=== PATIENT | female | born 1980 | race Caucasian/White ===

== ENCOUNTER 2017-09-28 13:07 | Emergency (ER) | payer BC ==
[~2017-09-28] VITALS: Ht 175.3 cm; Wt 113.4 kg
[2017-09-28 13:11] VITALS: BP 132/75
[2017-09-28 14:15] LABS: BILIRUBIN,URINE Negative (NEGATIVE); BLOOD, URINE Negative Ery/uL (NEGATIVE); KETONES,URINE Negative (NEGATIVE); LEUKOCYTE ESTERASE ,URINE Negative (NEGATIVE); NITRITE, URINE Negative (NEGATIVE); PROTEIN,URINE Negative (NEGATIVE); UGLUCOSE Negative (NEGATIVE); UROBILINOGEN,URINE 0.2 EU/dL (0.2)
[2017-09-28 14:17] LABS: APPEARANCE,URINE CLEAR (CLEAR); COLOR,URINE DARK YELLOW (YELLOW)
[2017-09-28] MEDS ORDERED: PSEUDOEPHEDRINE HCL 30 MG TABLET ONE ×2 (14:57→14:59)
[2017-09-28] MEDS ORDERED: PSEUDOEPHEDRINE HCL 30 MG TABLET PO ONE (15:00)
== END 2017-09-28 15:41 | disposition home or self-care (01) ==
LOC: ER 13:08
DX: M54.5 Low back pain (principal); J06.9 Acute upper respiratory infection, unspecified; R21 Rash and other nonspecific skin eruption
CPT/HCPCS: 81000-TC; 84703-TC; 87210-TC; 87491; 87591; A4606; Z7610

== ENCOUNTER 2020-03-23 16:50 | Emergency (ER) | payer BC ==
[~2020-03-23] VITALS: Ht 177.8 cm; Wt 146.5 kg
[2020-03-23] MEDS ORDERED: KETOROLAC TROMETHAMINE INJ 30 MG/ML VIAL IV ONE (17:30)
[2020-03-23] MEDS ORDERED: IV NS 0.9% 1,000 ML BAG IV ONE (17:30)
[2020-03-23] MEDS ORDERED: KETOROLAC TROMETHAMINE INJ 30 MG/ML VIAL ONE (18:05)
[2020-03-23 18:24] LABS: APPEARANCE,URINE SL CLOUDY (CLEAR); BILIRUBIN,URINE NEGATIVE (NEGATIVE); BLOOD, URINE NEGATIVE Ery/uL (NEGATIVE); COLOR,URINE YELLOW (YELLOW); KETONES,URINE NEGATIVE (NEGATIVE); LEUKOCYTE ESTERASE ,URINE NEGATIVE (NEGATIVE); NITRITE, URINE NEGATIVE (NEGATIVE); PROTEIN,URINE NEGATIVE (NEGATIVE); UGLUCOSE NEGATIVE (NEGATIVE)
[2020-03-23 18:30] LABS: BACTERIA,URINE 3+ /HPF (None Seen); RBC,URINE 0-2 /HPF (0-2); WBC,URINE 0-2 /HPF (0-3)
[2020-03-23 18:31] LABS: SQUAMOUS EPITHELIAL CELL,UR Few /HPF (None Seen)
[2020-03-23 18:54] LABS: CALCIUM, SERUM 8.8 mg/dL (8.5-10.1); CREATININE 0.7 mg/dL (0.6-1.3); POTASSIUM 3.9 mmol/L (3.5-5.1)
[2020-03-23 19:00] LABS: BILIRUBIN,DIRECT 0.1 mg/dL (0.0-0.2); BILIRUBIN,TOTAL 0.5 mg/dL (0.2-1.0); TOTAL PROTEIN, SERUM 8.5 g/dL (6.4-8.2)
--- NOTE | 2020-03-23 19:24 | NUR ---
TOOK OVER PT CARE. PER TRIAGE AND PER PT C/O VAGINAL DISCHARGE & HEADACHE. PT WAS PLACED IN BED 16 ON MONITOR AND PULSE OX. VSS. NO ACUTE DISTRESS NOTED. RAC 20G WAS PLACED ON PT.
[2020-03-23] MEDS ORDERED: TRAMADOL HCL 50 MG TABLET PO ONE (20:00)
[2020-03-23] MEDS ORDERED: TRAMADOL HCL 50 MG TABLET ONE (20:04)
[2020-03-23 20:29] LABS: BASOPHILS % (AUTO) 0.5 % (0.0-2.0); EOSINOPHILS % (AUTO) 2.7 % (0.0-6.0); HEMATOCRIT 25 % (33-45); HEMOGLOBIN 7.1 g/dL (11.5-14.8); LYMPHOCYTES # (AUTO) 2.7 /CMM (0.8-4.8); LYMPHOCYTES % (AUTO) 32.6 % (20.0-44.0); MEAN CORPUSCULAR HGB CONC 29 g/dl (31.0-36.0); MEAN CORPUSCULAR VOLUME 61 fL (82-100); MONOCYTES # (AUTO) 0.5 /CMM (0.1-1.30); MONOCYTES % (AUTO) 6.6 % (2.0-12.0); NEUTROPHILS # (AUTO) 4.7 /CMM (1.8-8.9); NEUTROPHILS % (AUTO) 57.6 % (43.0-81.0); PLATELET COUNT (AUTO) 361 /CMM (150-450); WHITE BLOOD COUNT (AUTO) 8.1 K/uL (4.3-11.0)
[2020-03-23] MEDS ORDERED: DEXAMETHASONE SOD PHOSPHATE 10 MG/ML VIAL ONE (20:44)
[2020-03-23] MEDS ORDERED: diphenhydrAMINE HCL 50 MG/ML VIAL ONE (20:44)
[2020-03-23] MEDS ORDERED: PROCHLORPERAZINE EDISYLATE 10 MG/2 ML VIAL ONE (20:44)
[2020-03-23] MEDS ORDERED: IV NS 0.9% 500 ML BAG IV ONE (21:00)
[2020-03-23] MEDS ORDERED: DEXAMETHASONE SOD PHOSPHATE 10 MG/ML VIAL IV ONE (21:00)
[2020-03-23] MEDS ORDERED: PROCHLORPERAZINE EDISYLATE 10 MG/2 ML VIAL IVP ONE (21:00)
[2020-03-23] MEDS ORDERED: diphenhydrAMINE HCL 50 MG/ML VIAL IV ONE (21:00)
--- NOTE | 2020-03-23 22:01 | NUR ---
IV removed. Catheter intact and site benign. Pressure and 4x4 applied to site. No bleeding noted.Patient discharged to home in stable condition. Written and verbal after care instructions given. Patient verbalizes understanding of instruction. Pt ambualted with steady gait,. vss. Denies pain.
[2020-03-23 23:05] VITALS: BP 128/72
[2020-03-23 23:16] LABS: EOSINOPHILS % (MANUAL) 1 % (0-4); LYMPHOCYTES % (MANUAL) 33 % (16-48); MONOCYTES % (MANUAL) 6 % (0-11.0); NEUTROPHILS % (MANUAL) 60 (42-76)
== END 2020-03-23 23:06 | disposition home or self-care (01) ==
LOC: ER 16:55
DX: N89.8 Other specified noninflammatory disorders of vagina (principal); R51.9 Headache, unspecified; D64.9 Anemia, unspecified; Z98.890 Other specified postprocedural states
CPT/HCPCS: 36415; 80048; 80076; 81001; 83690; 84703; 85007; 85025; 87077; 87086; 87186; 87210; 87491; 87591; 96361; 96374; 96375; 99284; J0780; J1100; J1200; J1885; J7030; J7040; 81000-TC

== ENCOUNTER 2020-11-21 05:06 | Emergency (ER) | payer BC ==
[~2020-11-21] VITALS: Ht 175.3 cm; Wt 145.1 kg
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
--- NOTE | 2020-11-21 06:22 | NUR ---
X RAY AT BEDSIDE
[2020-11-21 07:12] LABS: BASOPHILS % (AUTO) 0.2 % (0.0-2.0); EOSINOPHILS % (AUTO) 2.7 % (0.0-6.0); HEMATOCRIT 25 % (33-45); HEMOGLOBIN 7.3 g/dL (11.5-14.8); LYMPHOCYTES # (AUTO) 2.3 /CMM (0.8-4.8); LYMPHOCYTES % (AUTO) 22.1 % (20.0-44.0); MEAN CORPUSCULAR HGB CONC 30 g/dl (31.0-36.0); MEAN CORPUSCULAR VOLUME 64 fL (82-100); MONOCYTES # (AUTO) 0.6 /CMM (0.1-1.30); MONOCYTES % (AUTO) 5.7 % (2.0-12.0); NEUTROPHILS % (AUTO) 69.3 % (43.0-81.0); PLATELET COUNT (AUTO) 298 /CMM (150-450); RED BLOOD CELL COUNT(AUTO) 3.89 MIL/uL (4.0-5.2); WHITE BLOOD COUNT (AUTO) 10.2 K/uL (4.3-11.0)
[2020-11-21 07:19] LABS: CALCIUM, SERUM 8.4 mg/dL (8.5-10.1); CARBON DIOXIDE 24 mmol/L (21-32); CHLORIDE 107 mmol/L (98-107); CREATININE 0.8 mg/dL (0.6-1.3); GLUCOSE 97 mg/dL (74-106); POTASSIUM 3.8 mmol/L (3.5-5.1); SODIUM SERUM 140 mmol/L (136-145); UREA NITROGEN, BLOOD 12 mg/dL (7-18)
[2020-11-21] MEDS ORDERED: LORAZEPAM INJ 2 MG/ML VIAL IV ONE (08:30)
[2020-11-21] MEDS ORDERED: LORAZEPAM INJ 2 MG/ML VIAL ONE (08:39)
--- NOTE | 2020-11-21 08:51 | NUR ---
PATIENT A/OX4, BREATHING EVEN AND UNLABORED, NO SOB NOTED. NEEDS ATTENDED. IV removed. Catheter intact and site benign. Pressure and 4x4 applied to site. No bleeding noted.Patient discharged to home in stable condition. Written and verbal after care instructions given. Patient verbalizes understanding of instruction. FAMILY AT BEDSIDE FOR TRANSPORTATION.
[2020-11-21 08:52] VITALS: BP 115/60
== END 2020-11-21 08:52 | disposition home or self-care (01) ==
LOC: ER 05:11
DX: R07.89 Other chest pain (principal)
CPT/HCPCS: 36415; 71045; 71275; 80048; 84484; 85025; 85378; 93005 ×3; 96374; 99285; J2060

== ENCOUNTER 2021-01-03 20:46 | Emergency (ER) | payer BC ==
[~2021-01-03] VITALS: Ht 175.3 cm; Wt 153.3 kg
--- NOTE | 2021-01-03 20:49 | NUR ---
PT AAOX4. BIBSELF C/O WORSENIG L SHOULDER PAIN RADIATING TO HAND X1 MONTH. DENIES TRAUMA. PLACED IN BED 17 ON MONITOR AND PULSE OX.
[2021-01-03] MEDS ORDERED: DEXAMETHASONE SOD PHOSPHATE 10 MG/ML VIAL ONE (21:05)
[2021-01-03] MEDS ORDERED: HYDROCODONE/APAP 5/325MG TABLET ONE ×2 (21:05→22:41)
[2021-01-03] MEDS ORDERED: KETOROLAC TROMETHAMINE INJ 60 MG/2 ML VIAL IM ONE (21:05)
[2021-01-03] MEDS: KETOROLAC TROMETHAMINE INJ 60 MG/2 ML VIAL IM ONE (21:34)
[2021-01-03] MEDS: DEXAMETHASONE SOD PHOSPHATE 4 MG/ML VIAL IM ONE (21:34)
[2021-01-03] MEDS: HYDROCODONE/APAP 5/325MG TABLET PO ONE ×2 (21:34→22:45)
[2021-01-03] MEDS ORDERED: HYDR-3980 PO (22:23)
[2021-01-03] MEDS ORDERED: IBUP-1957 PO (22:23)
--- NOTE | 2021-01-03 23:00 | NUR ---
Patient discharged to home in stable condition. Written and verbal after care instructions given. Patient verbalizes understanding of instruction. Pt ambulated out of ED.
[2021-01-03 23:01] VITALS: BP 120/76
== END 2021-01-03 23:01 | disposition home or self-care (01) ==
LOC: ER 20:54
DX: M54.12 Radiculopathy, cervical region (principal); M25.512 Pain in left shoulder; Z98.890 Other specified postprocedural states; Z79.899 Other long term (current) drug therapy
CPT/HCPCS: 72040; 73030; 96372 ×2; 99284; J1100; J1885

== ENCOUNTER 2021-07-24 12:03 | Emergency (ER) | payer BC ==
[~2021-07-24] VITALS: Ht 175.3 cm; Wt 149.5 kg
[~2021-07-24 12:03] MED LIST: HYDR-3980 PO; IBUP-1957 PO
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
--- NOTE | 2021-07-24 12:30 | NUR ---
AT BEDSIDE FOR EVAL.
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
--- NOTE | 2021-07-24 12:48 | NUR ---
PT IS WHEELED TO CT SCAN VIA [facility].
[2021-07-24] MEDS ORDERED: TDAP [DIPH/PERTUSSIS/TET] 0.5 ML VIAL IM ONE ×2 (12:50→13:00)
[2021-07-24] MEDS ORDERED: HYDROCODONE/APAP 5/325MG TABLET ONE (12:50)
[2021-07-24] MEDS ORDERED: IBUPROFEN 600 MG TABLET ONE (12:50)
--- NOTE | 2021-07-24 12:50 | NUR ---
CALLED [employer] #[phone] UNIT WILL BE DISPATCHED.
--- NOTE | 2021-07-24 12:53 | NUR ---
[employer] NUMBER [phone]
[2021-07-24] MEDS ORDERED: HYDROCODONE/APAP 5/325MG TABLET PO ONE (13:00)
[2021-07-24] MEDS ORDERED: IBUPROFEN 600 MG TABLET PO ONE (13:00)
--- NOTE | 2021-07-24 13:18 | NUR ---
PT SIGNED THE WAIVER.
[2021-07-24] MEDS ORDERED: AMOX/CLAVULANATE 875 MG TABLET PO ONE (13:30)
[2021-07-24] MEDS ORDERED: HYDR-3980 PO (13:33)
[2021-07-24] MEDS ORDERED: AMOX-430 PO (13:33)
[2021-07-24] MEDS ORDERED: AMOX/CLAVULANATE 875 MG TABLET ONE (13:36)
--- NOTE | 2021-07-24 13:56 | NUR ---
Patient discharged to home in stable condition. Written and verbal after care instructions given. Patient verbalizes understanding of instruction.
[2021-07-24 13:57] VITALS: BP 131/68
== END 2021-07-24 13:58 | disposition home or self-care (01) ==
LOC: ER 12:07
DX: S16.1XXA Strain of muscle, fascia and tendon at neck level, initial encounter (principal); S61.051A Open bite of right thumb without damage to nail, initial encounter; S61.451A Open bite of right hand, initial encounter; S09.90XA Unspecified injury of head, initial encounter; M79.645 Pain in left finger(s); Z98.890 Other specified postprocedural states; Z79.899 Other long term (current) drug therapy; Y04.1XXA Assault by human bite, initial encounter; Y93.89 Activity, other specified; Y92.89 Other specified places as the place of occurrence of the external cause; Y99.8 Other external cause status
CPT/HCPCS: 70450-TC; 70486-TC; 72125-TC; 73130-TC; 73140-TC; 90715

== ENCOUNTER 2023-12-08 08:48 | Inpatient (IN) | payer BC ==
[~2023-12-08] VITALS: Ht 175.3 cm; Wt 154.7 kg
[~2023-12-08 08:48] MED LIST changes: +AMOX-430 PO
[2023-12-08] MEDS: MORPHINE SULFATE INJ 2 MG/ML DISP.SYRIN IV ONE (09:30)
[2023-12-08] MEDS: IV NS 0.9% 500 ML BAG IV ONE (10:10)
[2023-12-08] MEDS: ONDANSETRON HCL/PF 4 MG/2 ML VIAL IVP ONE (10:10)
[2023-12-08] MEDS ORDERED: ONDANSETRON HCL/PF 4 MG/2 ML VIAL ONE (10:14)
[2023-12-08] MEDS ORDERED: MORPHINE SULFATE INJ 4 MG/ML DISP.SYRIN ONE (10:15)
[2023-12-08] MEDS: ACETAMINOPHEN ES 500 MG TABLET PO ONE (10:20)
[2023-12-08] MEDS ORDERED: ACETAMINOPHEN ES 500 MG TABLET ONE (10:21)
[2023-12-08 10:24] LABS: BASOPHILS % (AUTO) 0.5 % (0.0-2.0); EOSINOPHILS # (AUTO) 0.4 K/uL (0.0-0.7); EOSINOPHILS % (AUTO) 5.1 % (0.0-6.0); HEMATOCRIT 23 % (33-45); LYMPHOCYTES % (AUTO) 24.9 % (20.0-44.0); MEAN CORPUSCULAR HEMOGLOBIN 18 PG (26.0-33.0); MEAN CORPUSCULAR HGB CONC 30 g/dl (31.0-36.0); MEAN CORPUSCULAR VOLUME 60 fL (82-100); MONOCYTES # (AUTO) 0.4 K/uL (0.1-1.30); MONOCYTES % (AUTO) 4.7 % (2.0-12.0); NEUTROPHILS # (AUTO) 5.2 K/uL (1.8-8.9); NEUTROPHILS % (AUTO) 64.8 % (43.0-81.0); PLATELET COUNT (AUTO) 335 K/uL (150-450); RED BLOOD CELL COUNT(AUTO) 3.76 MIL/uL (4.0-5.2); RED CELL DISTRIBUTION WIDTH 22.9 % (11.5-15.0)
[2023-12-08 10:30] LABS: INR 1.01 (0.91-1.10); PARTIAL THROMBOPLASTIN TIME 23.6 SEC (24.3-34.3); PROTHROMBIN TIME 10.7 SECS (9.2-11.1)
[2023-12-08 10:34] LABS: HEMOGLOBIN 6.7 g/dL (11.5-14.8)
[2023-12-08 10:39] LABS: CREATININE 0.7 mg/dL (0.6-1.3); POTASSIUM 3.6 mmol/L (3.5-5.1)
[2023-12-08 12:26] LABS: ANISOCYTOSIS 1+; BASOPHILS % (MANUAL) 0 % (0.0-2.0); EOSINOPHILS % (MANUAL) 4 % (0-4); HYPOCHROMASIA 1+; LYMPHOCYTES % (MANUAL) 29 % (16-48); MONOCYTES % (MANUAL) 4 % (0-11.0); NEUTROPHILS % (MANUAL) 63 (42-76); PLATELET ESTIMATE ADEQUATE
[2023-12-08 12:27] LABS: OVALOCYTES 1+
[2023-12-08] MEDS: KETOROLAC TROMETHAMINE 15 MG/ML VIAL IM PRN (12:31)
[2023-12-08] MEDS ORDERED: NAPR220T66 PO (12:47)
[2023-12-08] MEDS ORDERED: IOHEXOL-300 100 ML VIAL IV ONE (12:53)
[2023-12-08] MEDS ORDERED: CT SWABBABLE VALVE TRANS SET 1 EA INFUS.SET MC ONE (12:53)
[2023-12-08] MEDS ORDERED: KETOROLAC TROMETHAMINE 15 MG/ML VIAL ONE (14:26)
[2023-12-08] MEDS: KETOROLAC TROMETHAMINE 15 MG/ML VIAL IV STA (14:34)
[2023-12-08] MEDS ORDERED: MAGNESIUM HYDROXIDE 30 ML UDC PO PRN (16:00)
[2023-12-08] MEDS ORDERED: ACETAMINOPHEN 325 MG TABLET PO PRN (16:00)
[2023-12-08] MEDS ORDERED: MAG HYDROX/AL HYDROX/SIMETH 30 ML UDC PO PRN (16:00)
[2023-12-08] MEDS ORDERED: Z GUARD REMEDY 4 OZ OINT TP PRN (16:00)
[2023-12-08 16:13] LABS: IRON, SERUM 15 ug/dl (50-175); TOTAL IRON BINDING CAPACITY 371 ug/dl (250-450)
[2023-12-08] MEDS: MORPHINE SULFATE INJ 2 MG/ML DISP.SYRIN IV PRN (16:38)
[2023-12-08 19:07] VITALS: BP 129/55; TEMP 98.4
[2023-12-08 19:22] VITALS: BP 129/55; TEMP 98.4
[2023-12-08 20:00] VITALS: BP 112/58; TEMP 97.7; O2SAT 100
[2023-12-08 20:22] VITALS: BP 108/55; TEMP 97.7
[2023-12-08] MEDS: HYDROCODONE/APAP 5/325MG TABLET PO PRN (21:49)
[2023-12-08] MEDS: ZOLPIDEM TARTRATE 5 MG TABLET PO PRN (22:04)
[2023-12-08 22:30] VITALS: BP 110/60; TEMP 97.8
[2023-12-09] VITALS (7 sets, daily range): BP systolic 91–124; BP diastolic 50–69; TEMP 97.8–98.7; O2SAT 98–99
[2023-12-09 07:21] LABS: BASOPHILS % (AUTO) 0.5 % (0.0-2.0); EOSINOPHILS # (AUTO) 0.4 K/uL (0.0-0.7); HEMATOCRIT 23 % (33-45); MONOCYTES # (AUTO) 0.5 K/uL (0.1-1.30); WHITE BLOOD COUNT (AUTO) 7.9 K/uL (4.3-11.0)
[2023-12-09 07:43] LABS: EOSINOPHILS % (AUTO) 4.6 % (0.0-6.0); LYMPHOCYTES % (AUTO) 25.5 % (20.0-44.0); MEAN CORPUSCULAR HEMOGLOBIN 19 PG (26.0-33.0); MEAN CORPUSCULAR HGB CONC 31 g/dl (31.0-36.0); MEAN CORPUSCULAR VOLUME 63 fL (82-100); MONOCYTES % (AUTO) 6.4 % (2.0-12.0); PLATELET COUNT (AUTO) 300 K/uL (150-450); RED BLOOD CELL COUNT(AUTO) 3.61 MIL/uL (4.0-5.2)
[2023-12-09 08:00] LABS: HEMOGLOBIN 6.9 g/dL (11.5-14.8)
[2023-12-09 10:21] LABS: CREATININE 0.7 mg/dL (0.6-1.3); MAGNESIUM 1.9 mg/dL (1.8-2.4); PHOSPHORUS 3.6 mg/dL (2.5-4.9); POTASSIUM 3.5 mmol/L (3.5-5.1)
[2023-12-09 15:13] LABS: ANISOCYTOSIS 2+; EOSINOPHILS % (MANUAL) 7 % (0-4); LYMPHOCYTES % (MANUAL) 21 % (16-48); MONOCYTES % (MANUAL) 4 % (0-11.0); NEUTROPHILS % (MANUAL) 68 (42-76); PLATELET ESTIMATE ADEQUATE
[2023-12-09 15:14] LABS: HYPOCHROMASIA 1+
[2023-12-09] MEDS: SOD FERRIC GLUC 125 MG in IV NS 0.9% 100 ML IV SCH (19:04)
[2023-12-10 04:00] VITALS: BP 112/62; TEMP 98.2; O2SAT 95
[2023-12-10 08:00] VITALS: BP 136/76; TEMP 97.9; O2SAT 99
[2023-12-10] MEDS: ONDANSETRON HCL/PF 4 MG/2 ML VIAL IVP PRN (11:56)
[2023-12-10] MEDS ORDERED: HYDROMORPHONE 1 MG/1 ML DISP.SYRIN IV ONE (13:00)
[2023-12-10 13:53] LABS: BASOPHILS # (AUTO) 0.1 K/uL (0.0-0.2); BASOPHILS % (AUTO) 0.6 % (0.0-2.0); EOSINOPHILS # (AUTO) 0.4 K/uL (0.0-0.7); EOSINOPHILS % (AUTO) 4.4 % (0.0-6.0); HEMATOCRIT 28 % (33-45); HEMOGLOBIN 8.4 g/dL (11.5-14.8); LYMPHOCYTES # (AUTO) 2.1 K/uL (0.8-4.8); MEAN CORPUSCULAR HEMOGLOBIN 20 PG (26.0-33.0); MEAN CORPUSCULAR HGB CONC 30 g/dl (31.0-36.0); MEAN CORPUSCULAR VOLUME 65 fL (82-100); MONOCYTES # (AUTO) 0.6 K/uL (0.1-1.30); MONOCYTES % (AUTO) 6.2 % (2.0-12.0); NEUTROPHILS % (AUTO) 65.8 % (43.0-81.0); PLATELET COUNT (AUTO) 414 K/uL (150-450); RED BLOOD CELL COUNT(AUTO) 4.27 MIL/uL (4.0-5.2); RED CELL DISTRIBUTION WIDTH 28.2 % (11.5-15.0); WHITE BLOOD COUNT (AUTO) 9.2 K/uL (4.3-11.0)
[2023-12-10] MEDS ORDERED: IV NS 0.9% 1,000 ML BAG IV PRN (14:30)
[2023-12-10] MEDS ORDERED: IV NS 0.9% 1,000 ML IV PRN (14:30)
[2023-12-10] MEDS: POLYETHYLENE GLYCOL 3350 17 GM POWD.PACK PO SCH (15:05)
[2023-12-10] MEDS ORDERED: ACET325T53 PO (15:20)
[2023-12-10] MEDS ORDERED: POLY17PO29 PO (15:20)
[2023-12-10] MEDS ORDERED: Hydrocodone/Apap 5/325MG PO (15:20)
[2023-12-10] MEDS ORDERED: FERR-68 PO (15:20)
[2023-12-10] MEDS ORDERED: HYDROMORPHONE 1 MG/1 ML DISP.SYRIN IV PRN (15:30)
[2023-12-10] MEDS ORDERED: HYDROMORPHONE MDV 1 MG in IV D5W 50 ML IV PRN (15:30)
[2023-12-10 16:00] VITALS: BP 121/67; TEMP 98.2; O2SAT 99
== END 2023-12-10 17:32 | disposition home or self-care (01) | DRG 663 ==
LOC: ER 08:49 → MEDSG1 13:58
PROVIDERS: ADMIT Internal Medicine; ATTEND Nurse Practitioner Acute Care
PROC: 30233N1 Transfusion of Nonautologous Red Blood Cells into Peripheral Vein, Percutaneous Approach (ICD-10-PCS; principal; 2023-12-08)
DX: D50.9 Iron deficiency anemia, unspecified (principal); D69.6 Thrombocytopenia, unspecified; D68.9 Coagulation defect, unspecified; S06.0X9A Concussion with loss of consciousness of unspecified duration, initial encounter; Z68.43 Body mass index [BMI] 50.0-59.9, adult; F10.129 Alcohol abuse with intoxication, unspecified; D25.9 Leiomyoma of uterus, unspecified; E04.2 Nontoxic multinodular goiter; Y92.410 Unspecified street and highway as the place of occurrence of the external cause; E66.9 Obesity, unspecified; V43.62XA Car passenger injured in collision with other type car in traffic accident, initial encounter; Z98.891 History of uterine scar from previous surgery; M79.10 Myalgia, unspecified site; Y90.9 Presence of alcohol in blood, level not specified; N93.9 Abnormal uterine and vaginal bleeding, unspecified
CPT/HCPCS: 36415; 70450-TC; 71260-TC; 76856-TC; 80048-TC; 83540-TC; 83735-TC; 84100-TC; 85025-TC; 85730-TC; 86850-TC; A4223; C1751; G0378; J1885; J2270; J2405; J2916; J7030; J7040; J7050; P9016; Q9967